=== PATIENT | female | born 2000 | race Caucasian/White ===

== ENCOUNTER 2021-02-19 00:01 | Emergency (ER) | payer SELFPAY ==
[~2021-02-19] VITALS: Ht 165.1 cm; Wt 50.0 kg
[2021-02-19] MEDS ORDERED: ONDANSETRON HCL 4MG/2ML INJ IV STA (00:13)
[2021-02-19] MEDS ORDERED: SODIUM CHLORIDE 0.9% 1,000 ML IV ONE (00:15)
[2021-02-19 00:35] LABS: BASOPHILS % 0.6 % (0.0-2.0); EOSINOPHILS % 1.2 % (0.0-5.0); HEMATOCRIT. 36.6 % (36.0-48.0); HEMOGLOBIN. 12.4 g/dL (12.0-16.0); LYMPHOCYTES % 34.2 % (20.0-50.0); MEAN CORPUSCULAR HEMOGLOBIN 31.7 pg (28.0-32.0); MEAN CORPUSCULAR VOLUME 93.6 fL (81.0-99.0); MEAN PLATELET VOLUME 8.6 fl (7.4-10.4); MONOCYTES % 3.2 % (2.0-8.0); NEUTROPHILS % 60.8 % (40.0-76.0); PLATELET 291 x1000/uL (130-400); RED CELL DISTRIBUTION WIDTH 13.4 % (11.6-14.6)
[2021-02-19 00:45] LABS: CHLORIDE 111 mEq/L (98-107)
[2021-02-19] MEDS ORDERED: DIPHENHYDRAMINE 50MG/ML VIAL IM ONE (00:45)
[2021-02-19] MEDS ORDERED: HALOPERIDOL LACTATE 5MG/ML VIAL IM ONE (00:45)
[2021-02-19 00:49] LABS: ETHANOL BLOOD 264 mg/dL
[2021-02-19 01:04] LABS: B-HCG QUANTITATIVE < 1 mIU/mL (<3)
[2021-02-19] MEDS ORDERED: KCL 20MEQ/100ML PREMIX 100 ML IV ONE (01:45)
[2021-02-19 04:32] VITALS: BP 110/61
== END 2021-02-19 04:33 | disposition home or self-care (01) ==
LOC: ER 00:01
DX: F10.129 Alcohol abuse with intoxication, unspecified (principal); E87.6 Hypokalemia; Y90.8 Blood alcohol level of 240 mg/100 ml or more
CPT/HCPCS: 36415; 80053; 80320; 84702; 85025; 85610; 96361; 96365; 96372; 96375; 99285; J1200; J1630; J2405; J3480; J7030; G0480

== ENCOUNTER 2022-06-24 17:08 | Emergency (ER) | payer SELFPAY ==
[~2022-06-24] VITALS: Ht 160 cm; Wt 53.0 kg
[2022-06-24 17:09] VITALS: BP 91/53
== END 2022-06-24 18:58 | disposition left against medical advice (07) ==
LOC: ER 17:08
DX: Z53.21 Procedure and treatment not carried out due to patient leaving prior to being seen by health care provider (principal)
CPT/HCPCS: 82962; 93005

== ENCOUNTER 2022-09-27 18:19 | Emergency (ER) | payer SELFPAY ==
[~2022-09-27] VITALS: Ht 165.1 cm; Wt 57.0 kg
[2022-09-27 19:39] LABS: BASOPHILS % 0.9 % (0.0-2.0); EOSINOPHILS % 2.1 % (0.0-5.0); HEMATOCRIT. 36.5 % (36.0-48.0); HEMOGLOBIN. 12.3 g/dL (12.0-16.0); LYMPHOCYTES % 36.9 % (20.0-50.0); MEAN CORPUSCULAR HEMOGLOBIN 31.6 pg (28.0-32.0); MEAN CORPUSCULAR VOLUME 93.6 fL (81.0-99.0); MEAN PLATELET VOLUME 8.4 fl (7.4-10.4); NEUTROPHILS % 54.1 % (40.0-76.0); PLATELET 254 x1000/uL (130-400); RED CELL DISTRIBUTION WIDTH 13.7 % (11.6-14.6)
[2022-09-27 19:50] LABS: CHLORIDE 109 mEq/L (98-107)
[2022-09-27 20:01] LABS: HCG SCREEN NEGATIVE
[2022-09-27 20:17] LABS: ETHANOL BLOOD 330 mg/dL
[2022-09-27] MEDS ORDERED: LORAZEPAM 2MG/ML CPJ IM ONE (22:00)
[2022-09-27] MEDS ORDERED: HALOPERIDOL LACTATE 5MG/ML VIAL IM ONE (22:00)
[2022-09-28 01:21] VITALS: BP 110/71
== END 2022-09-28 02:56 | disposition home or self-care (01) ==
LOC: ER 18:51
DX: F10.129 Alcohol abuse with intoxication, unspecified (principal); Y90.8 Blood alcohol level of 240 mg/100 ml or more; R45.1 Restlessness and agitation; Z78.1 Physical restraint status
CPT/HCPCS: 36415; 80053; 80307; 80320; 80329; 84703; 85025; 96372; 99291; J1630; J2060; G0480